=== PATIENT | female | born 1975 | race Caucasian/White ===

== ENCOUNTER 2023-04-22 09:50 | Day surgery (SDC) | payer BC ==
[~2023-04-22 09:50] MED LIST: Lactated Ringers 1,000 ML IV SCH; Sodium Chloride 0.9% 10 ML Syringe FLUSH PRN; Sodium Chloride 0.9% 2.5 ML Syringe FLUSH PRN; Sodium Chloride 0.9% 20 ML SDV IV PRN
[2023-04-22] MEDS ORDERED: propofoL 50 ML ONE (11:11)
== END 2023-04-22 12:35 | disposition home or self-care (01) ==
LOC: MW.SDS 09:50
PROVIDERS: ATTEND Surgery
DX: Z12.11 Encounter for screening for malignant neoplasm of colon (principal); K21.00 Gastro-esophageal reflux disease with esophagitis, without bleeding; K29.50 Unspecified chronic gastritis without bleeding; K44.9 Diaphragmatic hernia without obstruction or gangrene; K22.10 Ulcer of esophagus without bleeding; K57.30 Diverticulosis of large intestine without perforation or abscess without bleeding; K22.89 Other specified disease of esophagus; E66.9 Obesity, unspecified; Z88.0 Allergy status to penicillin; Z79.899 Other long term (current) drug therapy
CPT/HCPCS: 43239; 45378; 81025; J2704; J7120

== ENCOUNTER 2023-07-27 11:45 | Day surgery (SDC) | payer BC ==
[~2023-07-27 11:45] MED LIST changes: -Lactated Ringers 1,000 ML IV SCH
[2023-07-27] MEDS ORDERED: propofoL 50 ML ONE (12:19)
[2023-07-27] MEDS ORDERED: dexmedeTOMIDine HCl 200 MCG/2 ML SDV ONE (12:19)
[2023-07-27] MEDS: Lactated Ringers 1,000 ML IV SCH (14:19)
== END 2023-07-27 13:23 | disposition home or self-care (01) ==
LOC: MW.SDS 11:45
PROVIDERS: ATTEND Surgery
DX: K21.9 Gastro-esophageal reflux disease without esophagitis (principal); K44.9 Diaphragmatic hernia without obstruction or gangrene; Z98.84 Bariatric surgery status; Z79.899 Other long term (current) drug therapy; Z88.0 Allergy status to penicillin
CPT/HCPCS: 43239; 81025; J2704; J7120; 00731; J3490